=== PATIENT | male | born 1950 | race Caucasian/White ===

== ENCOUNTER → 2018-12-25 | Outpatient (CLI) | payer MEDICARE ==
--- NOTE | 2018-12-25 17:02 | US ---
EXAMINATION TYPE: US scrotum with doppler. Technique: Grayscale and color Doppler Duplex imaging performed of the scrotum. DATE OF EXAM: 12/25/2018 COMPARISON: NONE CLINICAL HISTORY: 68-year-old male ERECTILE DYSFUNCTION, ARTERIAL INSUFFICIENCY N52.01. Patient had p enile implant in October 2018 and c/o swelling at base of penis with discomfort since surgery. FINDINGS: EXAM MEASUREMENTS: TESTICLES: Right Testicle: 5.1 x 3.6 x 2.3 cm Left Testicle: 4.7 x 3.2 x 2.1 cm EPIDIDYMIS HEAD: Right Epididymis: 1.0 x 1.4 x 1.4 cm Left Epididymis: 0.8 x1.1 x 1.1 cm Doppler was performed to assess for testicular vascularity; good bilateral color flow and waveforms a re seen. There is no evidence of testicular torsion. Right Epididymis: multiple epididymal cysts with largest = 0.9 x 0.7 x 0.5cm. Right testicle is homog eneous. Right hydrocele is noted = 3.8 x 0.7 x 1.1cm. Left epididymis: appears wnl. Left varicoceles are noted inferior scrotal sac with neutral vein size is abnormal = 3.0mm (normal = 2.5mm). Left hydrocele is noted medial left scrotal sac =3.5 x 1.4 x 0.7cm. Penile pump is noted at the left paramedian inferior scrotal sac. The testicles are located more supe riorly and on either side. Complex fluid area is noted surrounding pump, and seen also at base of pen is at swelling = 4.9 x 4.7 x 2.8cm along the course of the catheters. The maintenance custodian notes additiona l fluid along the posterior dorsum of the penis. IMPRESSION: 1. Complex fluid collection measuring 4.9 cm along the catheters of the penile implant at the junctio n of the scrotum and penis corresponding to the site of patient's swelling. Correlated as to etiology such as seroma, chronic hematoma, or infective fluid. 2. Some additional fluid is seen surrounding the pump located within the left paramedian inferior scr otum. 3. Small to moderate-sized bilateral hydroceles. 4. No testicular mass or evidence for testicular torsion.
== END | disposition home or self-care (01) ==
LOC: RADUSWWP 15:25
PROVIDERS: ATTEND Urology
DX: T85.9XXA Unspecified complication of internal prosthetic device, implant and graft, initial encounter (principal); N43.3 Hydrocele, unspecified
CPT/HCPCS: 76870; 93975

== ENCOUNTER 2019-12-23 14:51 | Day surgery (SDC) | payer MEDICARE ==
[2019-12-18 15:23] VITALS: BMI 31.3
[~2019-12-23 14:51] MED LIST: SODIUM CHLORIDE 0.9% 1,000 ML IV SCH
[2019-12-23] MEDS ORDERED: LIDOCAINE 1% INJ 10MG/ML (20 ML MDV) ONE (15:20)
[2019-12-23] MEDS ORDERED: fentaNYL (PF) 50 MCG/ML 2 ML AMP ONE (15:21)
[2019-12-23 15:30] VITALS: RESP 16; TEMP 98
[2019-12-23] MEDS ORDERED: SODIUM CHLORIDE 0.9% 500 ML 500 ML IV ONE (15:30)
[2019-12-23] MEDS ORDERED: LIDOCAINE 1% INJ 10MG/ML (20 ML MDV) SQ ONE (15:47)
[2019-12-23] MEDS ORDERED: MIDAZOLAM 2 MG/2 ML VIAL IV ONE (15:48)
[2019-12-23 15:51] VITALS: BP 157/88; PULSE 71
--- NOTE | 2019-12-23 16:14 | P.PCN ---
Preoperative Diagnosis: Loop monitor implant Primary physicians: Dr. Carbajal Shagger: Dr. Henson Indication: CVA Patient was brought to the EP lab in a fasting state. Written informed consent was obtained prior to the procedure. The left pectoral area was prepped and draped per protocol. Intravenous antibiotic was administered preoperatively. A subcutaneous Loop monitor was implanted successfully and the wound was closed per protocol. The device was programmed to detect significant simone- arrhythmic and tachy-arrhythmic events, per protocol. Device and programming details: Cryptogenic stroke/atrial fibrillation detection Patient underwent EP procedure under conscious sedation/moderate sedation, monitoring of the level of consciousness and physiologic parameters including but not limited to vital signs and oxygenation. Patient tolerated the procedure well without any acute complications. Start time:345pm Stop time:354pm
--- NOTE | 2019-12-23 16:15 | P.PRLE ---
RE: Molina Werner Dear Ronaldo Auguste underwent implantation of a loop monitor for evaluation of cryptogenic stroke His medications remain unchanged at this time and I will send you a follow up note if he detect any sustained atrial fibrillation. Thank you for entrusting me with the care of the patient Warm regards Sincerely Bobby Henson
== END 2019-12-23 16:40 | disposition home or self-care (01) ==
LOC: CATHEP 14:51
PROVIDERS: ATTEND Internal Medicine Clinical Cardiac Electrophysiology
DX: I63.421 Cerebral infarction due to embolism of right anterior cerebral artery (principal); F17.210 Nicotine dependence, cigarettes, uncomplicated; I65.23 Occlusion and stenosis of bilateral carotid arteries; I48.91 Unspecified atrial fibrillation; I49.3 Ventricular premature depolarization; I47.1 Supraventricular tachycardia; I73.9 Peripheral vascular disease, unspecified; Z79.899 Other long term (current) drug therapy; Z79.01 Long term (current) use of anticoagulants
CPT/HCPCS: 33285; C1764; J2250; J0690; J2001

== ENCOUNTER → 2021-08-26 | Outpatient (CLI) | payer MEDICARE ==
[2021-08-26 18:25] LABS: ALT 49 U/L (10-49); AST 29 U/L (14-35); African American GFR (CKD) 70.6 (60.0-200.0); Albumin 4.7 g/dL (3.8-4.9); Albumin/Globulin Ratio 2.14 (1.60-3.17); Alkaline Phosphatase 108 U/L (41-126); BUN/Creat Ratio 14.08 Ratio (12.00-20.00); Blood Urea Nitrogen 16.9 mg/dL (9.0-27.0); Calcium 9.3 mg/dL (8.7-10.3); Carbon Dioxide 27.9 mmol/L (20.0-27.5); Chloride 105 mmol/L (96-109); Chol/HDL Ratio 2.89 Ratio; Globulin 2.2 g/dL (1.6-3.3); Glucose 105 mg/dL (70-110); LDL Cholesterol,Calculated 70.1 mg/dL (0.0-131.0); Non-African American GFR(CKD) 60.9 (60.0-200.0); Sodium 142 mmol/L (135-145); Total Protein 6.9 g/dL (6.2-8.2)
== END | disposition home or self-care (01) ==
LOC: LABWHC1 10:37
PROVIDERS: ATTEND Internal Medicine Clinical Cardiac Electrophysiology
DX: I63.9 Cerebral infarction, unspecified (principal); Z86.73 Personal history of transient ischemic attack (TIA), and cerebral infarction without residual deficits
CPT/HCPCS: 36415; 80053; 80061; 84443

== ENCOUNTER 2021-09-16 07:30 | Inpatient (IN) | payer MEDICARE ==
[2021-09-20 10:10] VITALS: BMI 30.2
[2021-09-21] MEDS: SODIUM CHLORIDE 0.9% 1,000 ML IV SCH ×4 (06:40→18:34)
[2021-09-21 06:47] LABS: Basophils # (A) 0.1 k/uL (0-0.2); Basophils % (A) 1 %; Eosinophils # (A) 0.2 k/uL (0-0.7); Eosinophils % (A) 3 %; HCT 45.4 % (39.0-53.0); HGB 14.9 gm/dL (13.0-17.5); Lymphocytes # (A) 1.3 k/uL (1.0-4.8); Lymphocytes % (A) 17 %; MCH 30.5 pg (25.0-35.0); MCHC 32.9 g/dL (31.0-37.0); MCV 92.7 fL (80.0-100.0); Mean Platelet Volume 9.1; Monocytes # (A) 0.5 k/uL (0-1.0); Monocytes % (A) 6 %; Neutrophils # (A) 5.2 k/uL (1.3-7.7); Neutrophils % (A) 70 %; Platelet Count 142 k/uL (150-450); RDW 14.2 % (11.5-15.5); WBC 7.4 k/uL (3.8-10.6)
[2021-09-21] MEDS ORDERED: ASPIRIN 81 MG PO ONE (07:05)
[2021-09-21] MEDS ORDERED: ASPIRIN 81 MG ONE (07:05)
[2021-09-21] MEDS ORDERED: HEPARIN SODIUM 1,000 UN/ML (10ML VL) ONE (07:41)
[2021-09-21] MEDS ORDERED: LIDOCAINE 1% INJ 10MG/ML (30 ML VIAL-PF) SQ ONE (07:56)
[2021-09-21] MEDS ORDERED: HEPARIN SODIUM 1,000 UN/ML (10ML VL) IV ONE (08:07)
[2021-09-21] MEDS ORDERED: CLOPIDOGREL 75 MG TAB ONE (08:09)
[2021-09-21] MEDS ORDERED: CLOPIDOGREL 75 MG TAB PO ONE (08:11)
[2021-09-21] MEDS ORDERED: IOPAMIDOL-370 125ML BTL INJ ONE ×2 (08:35)
[2021-09-21] MEDS ORDERED: ATROPINE SULFATE 0.1 MG/ML 10ML SYRINGE IV PRN (08:45)
[2021-09-21] MEDS ORDERED: MAG HYDROX/AL HYDROX/SIMETH 30 ML CUP PO PRN (08:45)
--- NOTE | 2021-09-21 08:54 | P.PCN ---
Date of Procedure: 09/21/21 Operative Findings: CAROTID ARTERY STENTING Performing physician Cortes Maynard M.D. Procedure performed #1 successful stenting of the right internal carotid artery using 9-7 mm x 30 mm Xact with adjunctive use of filter wire #2 selective left common and left internal carotid artery angiogram #3 an aortic arch angiogram #4 intracranial angiogram #5 right common femoral artery angiogram #6 ultrasound-guided access of the right common femoral artery Indication This is a 70-year-old gentleman who was diagnosed as and he was critical disease involving the right internal carotid artery confirmed by CT a. Approach Right common femoral artery Complication None Level of sedation No sedation was given during the procedure Procedure description After obtaining an informed consent the patient was brought to the cardiac brick and blocker aid labor. The right common femoral artery was cannulated using puncture technique under ultrasound guidance, the micropuncture wire passed easily then replace 70 cm 6- [place] shuttle sheath in the right common femoral artery over an 035 stiff Glidewire. That point anticoagulation was initiated and the patient was given 6000 use of heparin at the beginning of the procedure with continuous ACT monitoring throughout the procedure Subsequently I did aortic arch angiogram using 5-[place] pigtail catheter. That revealed type II aortic arch with a bovine arch as well but not to bovine arch. Subsequently I did selective innominate artery using a JB2 catheter. Subsequently stiff Glidewire was advanced to the right external carotid. After that I advanced a JB2 over the wire and then I advanced the sheath over the wire and the catheter to the mid right common carotid. Right common and right internal carotid angiogram was performed with injection through the sheath. Subsequently I did wire the lesion using the filter wire and the filter was advanced distal to the lesion in the right internal carotid artery. That was performed under fluoroscopy guidance. Please note that the filter wire was prepped under saline and we made sure no air bubbles identified. Predilatation of the lesion was performed using 4 mm balloon. Subsequently I deployed 9-7 mm x 30 mm Xact stent under fluoroscopy guidance after the stent was positioned under fluoroscopy guidance. Postdilatation was performed using 5 mm balloon. The following angiogram showed an excellent angiographic results and the procedure was completed without any complication Postprocedure management #1 dual antiplatelet therapy #2 restart the patient back on anticoagulation #3 pulled the sheath from the right groin and manual bleeding control #4 and ICU monitoring #5 follow-up with the patient
[2021-09-21] MEDS ORDERED: VALSARTAN 80 MG TAB PO SCH (09:00)
[2021-09-21] MEDS ORDERED: RX INFO: IV CONTRAST WAS GIVEN 1 EACH MISC MISCELLANE PRN (09:00)
--- NOTE | 2021-09-21 09:54 | IR ---
Fluoroscopy HISTORY: Right internal carotid artery stenosis 12.2 minutes fluoroscopy time supplied to the referring clinician. 149 intraoperative C-arm images d ocument the procedure. See dictated report from cardiology.
[2021-09-21 10:00] LABS: Glucose,Whole Blood 112 mg/dL (75-99)
[2021-09-21] MEDS: NOREPINEPHRINE 4 MG in SODIUM CHLORIDE 0.9% 250 ML IV SCH (10:54)
[2021-09-21] MEDS: ASPIRIN 81 MG PO SCH (11:04)
[2021-09-21] MEDS: TAMSULOSIN 0.4 MG CAP.ER.24H PO SCH ×2 (11:05→21:23)
[2021-09-21] MEDS: IPRATROPIUM 0.5 MG/2.5 ML NEBU INHALATION SCH ×4 (12:31→20:09)
[2021-09-21] MEDS: NICOTINE 14MG/24HR PATCH TRANSDERM SCH (13:45)
[2021-09-21] MEDS: SYMBICORT 80-4.5 MCG INHALER INHALATION SCH (20:04)
[2021-09-21] MEDS ORDERED: ATORVASTATIN 80 MG TAB PO SCH (21:00)
[2021-09-21] MEDS: ATORVASTATIN 40 MG TAB PO SCH (21:23)
[2021-09-22] MEDS: NOREPINEPHRINE 4 MG in SODIUM CHLORIDE 0.9% 250 ML IV SCH ×2 (02:49→15:58)
[2021-09-22 08:23] LABS: Basophils # (A) 0.1 k/uL (0-0.2); Basophils % (A) 1 %; Eosinophils # (A) 0.2 k/uL (0-0.7); Eosinophils % (A) 2 %; HCT 45.2 % (39.0-53.0); HGB 14.7 gm/dL (13.0-17.5); Lymphocytes # (A) 1.2 k/uL (1.0-4.8); Lymphocytes % (A) 13 %; MCH 30.4 pg (25.0-35.0); MCHC 32.5 g/dL (31.0-37.0); MCV 93.5 fL (80.0-100.0); Mean Platelet Volume 8.9; Monocytes # (A) 0.5 k/uL (0-1.0); Monocytes % (A) 5 %; Neutrophils # (A) 7.4 k/uL (1.3-7.7); Neutrophils % (A) 77 %; Platelet Count 154 k/uL (150-450); RBC 4.83 m/uL (4.30-5.90); WBC 9.7 k/uL (3.8-10.6)
[2021-09-22] MEDS: SYMBICORT 80-4.5 MCG INHALER INHALATION SCH ×3 (08:33→19:56)
[2021-09-22] MEDS: IPRATROPIUM 0.5 MG/2.5 ML NEBU INHALATION SCH ×5 (08:33→19:56)
[2021-09-22 08:44] LABS: African American GFR (CKD) >90 (>60 ml/min/1.73 sqM); Anion Gap 8 mmol/L; Blood Urea Nitrogen 14 mg/dL (9-20); Calcium 8.4 mg/dL (8.4-10.2); Carbon Dioxide 22 mmol/L (22-30); Chloride 110 mmol/L (98-107); Glucose 167 mg/dL (74-99); Non-African American GFR(CKD) 88 (>60 ml/min/1.73 sqM); Potassium 4.3 mmol/L (3.5-5.1); Sodium 140 mmol/L (137-145)
--- NOTE | 2021-09-22 08:53 | P.PN ---
Subjective Progress Note Date: 09/22/21 Principal diagnosis: Carotid disease The patient is a 70-year-old gentleman who underwent yesterday successful stenting of the right internal carotid artery from right groin approach for critical disease involving the right internal carotid artery documented by CTA. The patient was seen this morning. He is asymptomatic. Hemodynamically he still requires small dose of norepinephrine. He is not on any blood pressure medication at this point. I am going to keep monitoring the patient overnight in the intensive care unit for 24 hours and try to wean him from norepinephrine meanwhile I'm going to add a small dose of midodrine to the current medical regimen. He is on dual antiplatelet therapy which I'm going to continue and also he is on a statin which will continue as well. Objective - Vital Signs Vital signs: Vital Signs Temp 97.6 F 09/22/21 05:00 Pulse 64 09/22/21 08:35 Resp 12 09/22/21 08:35 BP 125/71 09/22/21 07:00 Pulse Ox 95 09/22/21 07:00 FiO2 Intake & Output 09/21/21 09/22/21 09/22/21 18:59 06:59 18:59 Intake Total 1148.278 346.829 10 Output Total 900 2025 Balance 248.278 -1678.171 10 Weight 86.1 kg Intake: IV 400 Intake, IV Titration 748.278 346.829 10 Amount Norepinephrine 4 mg In 48.278 226.829 Sodium Chloride 0.9% 250 ml @ 0.05 MCG/KG/MIN 16. 802 mls/hr IV .[id number] DARRELL Rx#:[id number] Sodium Chloride 0.9% 1, 700 120 10 000 ml @ 100 mls/hr IV . Q10H DARRELL Rx#:[id number] Output: Urine 900 2025 Other: Voiding Method Urinal Urinal - Constitutional General appearance: Present: no acute distress - Respiratory Respiratory: bilateral: diminished - Cardiovascular Heart sounds: normal: S1, S2 - Labs CBC & Chem 7: 09/22/21 07:35 09/22/21 07:35 Labs: Abnormal Lab Results - Last 24 Hours (Table) 09/21/21 09/22/21 Range/Units 09:59 07:35 Chloride 110 H (98-107) mmol/L Glucose 167 H (74-99) mg/dL POC Glucose (mg/dL) 112 H (75-99) mg/dL Assessment and Plan Assessment: Assessment #1 carotid disease and status post a stenting of the right internal carotid artery #2 hypertension requiring a small dose of norepinephrine Plan #1 continue dual antiplatelet therapy #2 add small dose of midodrine #3 wean the patient from norepinephrine #3 monitor the patient for additional 24 hours
[2021-09-22] MEDS: APIXABAN 2.5 MG TABLET PO SCH ×2 (09:12→20:24)
[2021-09-22] MEDS: CLOPIDOGREL 75 MG TAB PO SCH (09:12)
[2021-09-22] MEDS: TAMSULOSIN 0.4 MG CAP.ER.24H PO SCH ×2 (09:12→20:24)
[2021-09-22] MEDS: NICOTINE 14MG/24HR PATCH TRANSDERM SCH (09:12)
[2021-09-22] MEDS: ASPIRIN 81 MG PO SCH (09:15)
[2021-09-22] MEDS: MIDODRINE 5 MG TAB PO SCH ×2 (15:58→17:29)
[2021-09-22] MEDS: ATORVASTATIN 40 MG TAB PO SCH (20:24)
[2021-09-23 05:41] LABS: HCT 40.1 % (39.0-53.0); HGB 13.1 gm/dL (13.0-17.5); MCHC 32.5 g/dL (31.0-37.0); MCV 92.1 fL (80.0-100.0); Mean Platelet Volume 10.5; Platelet Count 117 k/uL (150-450); RBC 4.36 m/uL (4.30-5.90); RDW 13.7 % (11.5-15.5); WBC 6.4 k/uL (3.8-10.6)
[2021-09-23 05:59] LABS: African American GFR (CKD) >90 (>60 ml/min/1.73 sqM); Anion Gap 3 mmol/L; Blood Urea Nitrogen 18 mg/dL (9-20); Calcium 7.9 mg/dL (8.4-10.2); Carbon Dioxide 24 mmol/L (22-30); Chloride 111 mmol/L (98-107); Glucose 100 mg/dL (74-99); Non-African American GFR(CKD) 84 (>60 ml/min/1.73 sqM); Sodium 138 mmol/L (137-145)
[2021-09-23] MEDS: NOREPINEPHRINE 4 MG in SODIUM CHLORIDE 0.9% 250 ML IV SCH (07:22)
[2021-09-23] MEDS: MIDODRINE 5 MG TAB PO SCH (07:22)
[2021-09-23] MEDS: IPRATROPIUM 0.5 MG/2.5 ML NEBU INHALATION SCH (08:11)
[2021-09-23] MEDS: SYMBICORT 80-4.5 MCG INHALER INHALATION SCH (08:11)
[2021-09-23] MEDS: APIXABAN 2.5 MG TABLET PO SCH (08:34)
[2021-09-23] MEDS: CLOPIDOGREL 75 MG TAB PO SCH (08:34)
[2021-09-23] MEDS: ASPIRIN 81 MG PO SCH (08:34)
[2021-09-23] MEDS: NICOTINE 14MG/24HR PATCH TRANSDERM SCH (08:34)
[2021-09-23] MEDS: TAMSULOSIN 0.4 MG CAP.ER.24H PO SCH (08:39)
--- NOTE | 2021-09-23 08:43 | P.DS ---
Providers Date of admission: 09/21/21 06:03 Attending physician: Cortes Maynard Primary care physician: [facility] Course: The patient is a pleasant 70-year-old gentleman who was diagnosed with and he was critical disease involving the right internal carotid artery. He underwent successful stenting of the right internal carotid artery from right groin approach. He was seen yesterday be because he was hypotensive requiring vasopressors we kept the patient one more day. At that point would continue holding his valsartan and we started the patient on midodrine. He was seen this morning. He is off vasopressors. He is stable hemodynamically and he is asymptomatic from a perivascular standpoint overview. The right groin is soft and nontender and without any bruises. From a cardiac vascular standpoint of view, the patient going to be discharged home. He will be going on triple therapy including aspirin and Plavix and low dose of a look with. Also he is going to be discharged on statin. He'll follow-up with Dr. Henson in a week Plan - Discharge Summary Discharge Rx Participant: No New Discharge Prescriptions: New Apixaban [Eliquis] 2.5 mg PO BID #180 tab Continue Atorvastatin [Lipitor] 80 mg PO HS Fluticasone/Umeclidin/Vilanter [Trelegy Ellipta 100-62.5-25] 1 inhalation INHALATION DAILY Aspirin [Adult Low Dose Aspirin EC] 81 mg PO DAILY Tamsulosin [Flomax] 0.4 mg PO BID Discontinued Apixaban [Eliquis] 5 mg PO BID Valsartan 80 mg PO DAILY Discharge Medication List Atorvastatin [Lipitor] 80 mg PO HS 12/18/19 [History] Aspirin [Adult Low Dose Aspirin EC] 81 mg PO DAILY 09/20/21 [History] Fluticasone/Umeclidin/Vilanter [Trelegy Ellipta 100-62.5-25] 1 inhalation INH ALATION DAILY 09/20/21 [History] Tamsulosin [Flomax] 0.4 mg PO BID 09/20/21 [History] Apixaban [Eliquis] 2.5 mg PO BID #180 tab 09/23/21 [Rx] Follow up Appointment(s)/Referral(s): Bobby Henson MD [STAFF PHYSICIAN] - 1 Week
[2021-09-23 08:44] VITALS: TEMP 97.7
[2021-09-23 09:03] VITALS: BP 120/65; PULSE 106; RESP 25
== END 2021-09-23 09:37 | disposition home or self-care (01) | DRG 36 ==
LOC: 2ORMAIN 09-21 06:03 → 2SICU 09-21 09:45
PROVIDERS: ADMIT Internal Medicine Interventional Cardiology; ATTEND Internal Medicine Interventional Cardiology
DX: I65.21 Occlusion and stenosis of right carotid artery (principal); I73.9 Peripheral vascular disease, unspecified; I48.0 Paroxysmal atrial fibrillation; I10 Essential (primary) hypertension; F17.210 Nicotine dependence, cigarettes, uncomplicated; I95.9 Hypotension, unspecified; Z79.01 Long term (current) use of anticoagulants; Z86.73 Personal history of transient ischemic attack (TIA), and cerebral infarction without residual deficits
CPT/HCPCS: 36223; 37215; 80048; 85025; 85027; 87635; 94640

== ENCOUNTER → 2021-11-09 | Outpatient (CLI) | payer MEDICARE ==
[2021-11-09 18:33] LABS: LDL Cholesterol,Calculated 76.4 mg/dL (0.0-131.0)
== END | disposition home or self-care (01) ==
LOC: LABWHC1 11:17
PROVIDERS: ATTEND Internal Medicine Interventional Cardiology
DX: E78.5 Hyperlipidemia, unspecified (principal)
CPT/HCPCS: 36415; 80061

== ENCOUNTER → 2022-01-12 | Outpatient (CLI) | payer MEDICARE ==
[2022-01-12 15:45] LABS: LDL Cholesterol,Calculated 47.8 mg/dL (0.0-131.0); VLDL Calculation 12.36 mg/dL (5.00-40.00)
== END | disposition home or self-care (01) ==
LOC: LABWHC1 10:05
PROVIDERS: ATTEND Internal Medicine Clinical Cardiac Electrophysiology
DX: I65.21 Occlusion and stenosis of right carotid artery (principal)
CPT/HCPCS: 36415; 80061